=== PATIENT | female | born 1965 | race Caucasian/White ===

== ENCOUNTER → 2020-03-19 12:15 | Outpatient (CLI) | payer OTHER, SELFPAY ==
--- NOTE | ~2020-03-19 | DEXA_ITS ---
Bone Density Report Name: Nanette Ledesma Age: 54 Sex: Female Ethnicity: White Date of : 1965 Indication: postmenopausal; screening for osteoporosis; Referring Provider: MARIOLA GONZALEZ Study: Bone densitometry was performed. Exam Date: March 19, 2020 Accession number: [id number] Bone Density: Region BMD T-score Z-score Classification AP Spine (L1-L4) 0.937 -1.0 -0.1 Normal Femoral Neck (Left) 0.634 -1.9 -1.0 Osteopenia Total Hip (Left) 0.908 -0.3 0.3 Normal Femoral Neck (Right) 0.636 -1.9 -1.0 Osteopenia Total Hip (Right) 0.896 -0.4 0.2 Normal Total Hip Mean 0.902 -0.4 0.3 Normal World Health Organization criteria for BMD impression classify patients as: Normal (T-score at or above -1.0), Osteopenia (T-score between -1.0 and -2.5), or Osteoporosis (T-score at or below -2.5). 10-year Fracture Risk(1): Major Osteoporotic Fracture 6.4% Hip Fracture 0.7% Reported Risk Factors: [place] (), Neck BMD=0.636, BMI=28.2 (1) FRAX(R) Version 3.08. Fracture probability calculated for an untreated patient. Fracture probability may be lower if the patient has received treatment. Clinical Information Provided by Patient: Has used the following medications: Vitamin D Patient maximum height was 65 Menopause Age: 51 No regular weight bearing exercise Does not regularly consume dairy products Drinks caffeinated beverages Onset of menses at age 16 Number of children 0 Impression: The patient has low bone mass, based on the Left Femoral Neck T-score. The patient has an estimated ten-year risk of hip fracture of 0.7% and an estimated ten-year risk of major fracture of 6.4%, based on the WHO FRAX algorithm. Discussion: BONE DENSITY IS LOW AT ONE OR MORE SKELETAL SITES. This patient's lowest T-score is low at one or more skeletal sites. It meets the World Health Organization's (WHO) criteria for ?low bone mass? (T-score between -1.0 and -2.5). The patient's 10-year risk of fracture as calculated by FRAX is less than the threshold where pharmacological therapy is recommended by the National Osteoporosis Foundation (NOF). However, all treatment decisions require clinical judgment and consideration of individual patient factors, including patient preferences, comorbidities, previous drug use, risk factors not captured in the FRAX model (e.g., frailty, falls, vitamin D deficiency, increased bone turnover, interval significant decline in bone density) and possible under or overestimation of fracture risk by FRAX. The patient should follow a healthful lifestyle (good nutrition with adequate calcium and vitamin D, and appropriate weight-bearing exercise). Follow-Up: Consider repeating this study in 2 to 3 years to reassess this patient's status, or sooner if there is some new clinical indication. Chuy
== END ==
PROVIDERS: Visit Provider Obstetrics & Gynecology Gynecology
DX: Z78.0 Asymptomatic menopausal state (principal); M85.89 Other specified disorders of bone density and structure, multiple sites
CPT/HCPCS: 77080

== ENCOUNTER → 2020-04-05 13:36 | Outpatient (CLI) | payer OTHER, SELFPAY ==
--- NOTE | ~2020-04-05 | MM_ITS ---
EXAMINATION: MM screening kavitha BI w kandace HISTORY: Screening mammogram TECHNIQUE: Craniocaudal and mediolateral oblique 3-D tomosynthesis images were obtained and synthetic 2-D images were generated. CAD analysis was submitted and interpreted. COMPARISON: 04/03/2019, 03/06/2018, 02/26/2017 bilateral digital screening mammogram examinations BREAST PARENCHYMAL COMPOSITION: FINDINGS: There is no evidence of suspicious mass, calcification, or architectural distortion to sugg est malignancy in either breast. There has been no suspicious interval change. IMPRESSION: 1. No mammographic evidence of malignancy. 2. Recommend routine screening mammography in one year. BI-RADS Category 1: Negative Reviewed, dictated and finalized at location A.
== END ==
PROVIDERS: Visit Provider Obstetrics & Gynecology Gynecology
DX: Z12.31 Encounter for screening mammogram for malignant neoplasm of breast (principal)
CPT/HCPCS: 77063; 77067

== ENCOUNTER → 2020-11-04 10:43 | Outpatient (CLI) | payer OTHER, SELFPAY ==
--- NOTE | ~2020-11-04 | XR_ITS ---
EXAMINATION: CT abdomen pelvis wo/w con, XR abdomen/kub 1V DATE: 11/04/2020 11:44 INDICATION: Microscopic hematuria TECHNIQUE: 1. Computed tomography (CT) of the abdomen and pelvis was performed without intravenous contrast. CT of the abdomen and pelvis was then performed with a total of 130 mL Omnipaque-350 intravenous contras t using a double-bolus technique for simultaneous opacification of the renal parenchyma and renal col lecting system. Automated exposure control and iterative reconstruction technique were employed. The dose-length product was 1751.03 mGy-cm. 2. A single view of the abdomen was obtained on 2 radiographs. COMPARISON: None FINDINGS: CT: Small calcified nodules at the lingula consistent with old granulomatous disease. Heart size is krystian l. No pericardial or pleural effusion. Liver, gallbladder, spleen, pancreas and bilateral adrenal gla nds are normal. Bowels including the appendix are normal. Uterus and bilateral adnexa are unremarkabl e. No free intraperitoneal gas or fluid. No pathologically enlarged abdominal or pelvic lymphadenopat hy. Very mild lumbar levocurvature. Bones are otherwise unremarkable. Bilateral nephrolithiasis with single 5 mm nonobstructing stone at the lower pole calyx of the left k idney. Large at least partially obstructing staghorn calculus extending from the right renal pelvis i nto the infundibula of the bilateral lower pole calyces which measures up to 2.3 cm in maximal dimens ion and resulting in mild to moderate hydronephrosis in the right kidney. Contrast does however exten d beyond the stone the opacifying the proximal to mid right ureter and there is symmetric renal paren chymal enhancement with no delayed nephrogram. There are 6 additional stones measuring between 3-10 m m in the right kidney. No stones seen along the bilateral ureters. The left renal collecting system a nd ureter are opacified in their entirety. No urothelial irregularities along the contrast opacified bilateral renal collecting systems and ureters. Bladder is normal with left-sided ureteral jet. ABDOMEN RADIOGRAPH(S): The left renal stone and many of the larger right renal stones including the staghorn calculus at the renal pelvis are visible on the plain radiographs. Normal bowel gas pattern. IMPRESSION: 1. Bilateral nephrolithiasis including a partially obstructing 2.3 cm staghorn calculus at the right renal pelvis with mild to moderate right hydronephrosis but also contrast extending beyond the stone into the right ureter and without a delayed right nephrogram. Reviewed, dictated and finalized at location B. IMPRESSION: 1. Bilateral nephrolithiasis including a partially obstructing 2.3 cm staghorn calculus at the right renal pelvis with mild to moderate right hydronephrosis b ut also contrast extending beyond the stone into the right ureter and without a delayed right nephrogram.
[2020-11-04 11:13] LABS: Estimated Glomerular Filt Rate 58
== END ==
PROVIDERS: Visit Provider Urology
DX: R31.29 Other microscopic hematuria (principal); N20.0 Calculus of kidney
CPT/HCPCS: 74018; 74178; Q9967

== ENCOUNTER → 2021-02-07 10:12 | Outpatient (CLI) | payer OTHER, SELFPAY ==
--- NOTE | ~2021-02-07 | XR_ITS ---
XR abdomen/kub 1V 02/07/2021 10:58 Indication: Renal stones Procedure: KUB Comparison: 11/04/2010 Findings: There are bilateral renal stones with decreased stone burden in the right kidney. Bowel gas pattern is nonobstructive. Moderate colonic fecal loading. Mild levocurvature of the lumbar spine. N o acute osseous abnormality. Impression: 1: Bilateral nephrolithiasis Reviewed, dictated and finalized at location B. Impression: 1: Bilateral nephrolithiasis
--- NOTE | ~2021-02-07 | US_ITS ---
EXAMINATION: US retroperitoneal comp DATE: 02/07/2021 10:36 INDICATION: Calcium kidney stone. TECHNIQUE: Multiple ultrasound grayscale images of the kidneys were obtained. COMPARISON: CT abdomen and pelvis 11/01/2020 FINDINGS: The right kidney measures 11.5 x 6.0 x 7.0 cm. The left kidney measures 9.8 x 5.1 x 5.2 cm. The kidne ys demonstrate normal parenchymal echogenicity. There is a subcapsular hematoma of right kidney measu ring up to 17 mm in thickness. There are stones in the kidneys, right worse than left. There is mild right hydronephrosis. The bladder is normal. IMPRESSION: 1. Subcapsular hematoma of right kidney, new from 11/01/2020. 2. Bilateral kidney stones, right worse than left. 3. Mild right hydronephrosis. Reviewed, dictated and finalized at location A.
== END ==
PROVIDERS: Visit Provider Urology
DX: N20.0 Calculus of kidney (principal)
CPT/HCPCS: 74018; 76770

== ENCOUNTER → 2021-02-25 08:14 | Outpatient (CLI) | payer OTHER, SELFPAY ==
--- NOTE | ~2021-02-25 | CT_ITS ---
EXAMINATION: CT abdomen pelvis wo con DATE: 02/25/2021 08:47 INDICATION: Calcium kidney stone TECHNIQUE: Computed tomography (CT) of the abdomen and pelvis was performed without intravenous contr ast. Automated exposure control and iterative reconstruction technique were employed. Exam dose: 521 .72 mGy-cm total exam DLP. COMPARISON: 02/07/2021 KUB 11/04/2020 CT abdomen pelvis without and subsequently with IV contrast material FINDINGS: The lung bases are clear of infiltrate or consolidation. Normal heart size. No pericardial or pleural effusion. The liver, gallbladder, bile ducts, spleen, pancreas, pancreatic duct and adrenal glands appear krystian l. Approximately 2 cm lower pole probable right renal cyst. No other renal space-occupying mass lesion i s evident on this limited noncontrast examination. Bilateral nephrolithiasis: There are approximately 7 right renal nonobstructing calculi, measuring up to 5.8 x 9 mm maximal dime nsion. 2 x 4 mm upper pole left renal nonobstructing calculus. Up to 4.2 x 9 mm lower pole left renal nonobstructing calculus. No ureteral calculus or hydroureteronephrosis. Normal caliber of the abdominal aorta. No intraperitoneal or retroperitoneal or pelvic mass lesion or adenopathy or ascites. Normal appendix. No bowel obstruction, bowel wall thickening, pneumatosis or intraperitoneal free air . Small fat-containing umbilical hernia. Included skeletal structures are unremarkable. IMPRESSION: Bilateral nonobstructive nephrolithiasis 2 cm probable right renal cyst Reviewed, dictated and finalized at Location A. Reviewed, dictated and finalized at location A.
== END ==
PROVIDERS: Visit Provider Urology
DX: N20.0 Calculus of kidney (principal)
CPT/HCPCS: 74176

== ENCOUNTER → 2021-04-27 13:36 | Outpatient (CLI) | payer OTHER, SELFPAY ==
--- NOTE | ~2021-04-27 | MM_ITS ---
EXAMINATION: MM screening kavitha BI w kandace HISTORY: Screening mammogram TECHNIQUE: Craniocaudal and mediolateral oblique 3-D tomosynthesis images were obtained and synthetic 2-D images were generated. CAD analysis was submitted and interpreted. COMPARISON: 04/05/2020, 04/03/2019, 03/06/2018 bilateral digital screening mammogram examinations BREAST PARENCHYMAL COMPOSITION: There are scattered areas of fibroglandular density. FINDINGS: There is no evidence of suspicious mass, calcification, or architectural distortion to sugg est malignancy in either breast. There has been no suspicious interval change. IMPRESSION: 1. No mammographic evidence of malignancy. 2. Recommend routine screening mammography in one year. BI-RADS Category 1: Negative Reviewed, dictated and finalized at location A.
== END ==
PROVIDERS: Visit Provider Obstetrics & Gynecology Gynecology
DX: Z12.31 Encounter for screening mammogram for malignant neoplasm of breast (principal)
CPT/HCPCS: 77063; 77067

== ENCOUNTER → 2021-12-21 14:52 | Outpatient (CLI) | payer OTHER, SELFPAY ==
--- NOTE | ~2021-12-21 | XR_ITS ---
EXAM: XR abdomen/kub 1V HISTORY: Calcium kidney stone COMPARISON: 02/07/21 FINDINGS: Clear lung bases. Normal bowel gas pattern. No organomegaly. Bilateral renal stones, decre ased stone burden on the right. Regional bones and soft tissues normal for age. IMPRESSION: Bilateral nephrolithiasis. Reviewed, dictated and finalized at location K. IMPRESSION: Bilateral nephrolithiasis.
== END ==
PROVIDERS: PCP Internal Medicine; Visit Provider Urology
DX: N20.0 Calculus of kidney (principal)
CPT/HCPCS: 74018

== ENCOUNTER → 2022-05-01 10:29 | Outpatient (CLI) | payer OTHER, SELFPAY ==
--- NOTE | ~2022-05-01 | MM_ITS ---
EXAMINATION: MM screening kavitha BI w kandace HISTORY: Screening mammogram TECHNIQUE: Craniocaudal and mediolateral oblique 3-D tomosynthesis images were obtained and synthetic 2-D images were generated. CAD analysis was submitted and interpreted. COMPARISON: 04/27/2021, 04/05/2020, 04/03/2019 bilateral screening mammogram examinations BREAST PARENCHYMAL COMPOSITION: There are scattered areas of fibroglandular density. FINDINGS: There is no evidence of suspicious mass, calcification, or architectural distortion to sugg est malignancy in either breast. There has been no suspicious interval change. IMPRESSION: 1. No mammographic evidence of malignancy. 2. Recommend routine screening mammography in one year. BI-RADS Category 1: Negative Reviewed, dictated and finalized at location A.
== END ==
PROVIDERS: PCP Internal Medicine; Visit Provider Obstetrics & Gynecology Gynecology
DX: Z12.31 Encounter for screening mammogram for malignant neoplasm of breast (principal)
CPT/HCPCS: 77063; 77067

== ENCOUNTER → 2022-12-21 08:47 | Outpatient (CLI) | payer OTHER, SELFPAY ==
--- NOTE | ~2022-12-21 | XR_ITS ---
EXAMINATION: XR abdomen/kub 1V DATE: 12/21/2022 09:03 INDICATION: Calculus of kidney. TECHNIQUE: A supine view of the abdomen on 2 radiographs was obtained. COMPARISON: CT abdomen and pelvis 02/25/2021 FINDINGS: There are no dilated loops of bowel. There are at least 5 stones in right kidney measuring up to 8 mm. There are 2 stones in left kidney measuring up to 9 mm. IMPRESSION: 1. Bilateral kidney stones. Reviewed, dictated and finalized at location A. IMPRESSION: 1. Bilateral kidney stones.
== END ==
PROVIDERS: PCP Internal Medicine; Visit Provider Urology
DX: N20.0 Calculus of kidney (principal)
CPT/HCPCS: 74018

== ENCOUNTER → 2023-05-07 11:02 | Outpatient (CLI) | payer OTHER, SELFPAY ==
--- NOTE | ~2023-05-07 | DEXA_ITS ---
Bone Density Report Name: CHRISTOFER ANDERSON Age: 57 Sex: Female Ethnicity: White Date of : 1965 Indication: postmenopausal; screening for osteoporosis; Referring Provider: BRIANA RAMOS Study: Bone densitometry was performed. Exam Date: May 07, 2023 Accession number: [id number] Bone Density: Region BMD T-score Z-score Classification AP Spine (L1-L4) 0.898 -1.4 -0.2 Osteopenia Femoral Neck (Left) 0.630 -2.0 -0.9 Osteopenia Total Hip (Left) 0.865 -0.6 0.1 Normal Femoral Neck (Right) 0.624 -2.0 -0.9 Osteopenia Total Hip (Right) 0.882 -0.5 0.2 Normal Total Hip Mean 0.874 -0.6 0.2 Normal World Health Organization criteria for BMD impression classify patients as: Normal (T-score at or above -1.0), Osteopenia (T-score between -1.0 and -2.5), or Osteoporosis (T-score at or below -2.5). 10-year Fracture Risk(1): Major Osteoporotic Fracture 7.7% Hip Fracture 0.8% Reported Risk Factors: [place] (), Neck BMD=0.624, BMI=29.1 (1) FRAX(R) Version 3.08. Fracture probability calculated for an untreated patient. Fracture probability may be lower if the patient has received treatment. Previous Exams: Region Exam Age BMD T-score BMD Change BMD Change Date g/cm2 vs Baseline vs Previous AP Spine(L1-L4) 05/07/2023 57 0.898 -1.4 -0.039* -0.039* 03/19/2020 54 0.937 -1.0 Total Hip(Left) 05/07/2023 57 0.865 -0.6 -0.043* -0.043* 03/19/2020 54 0.908 -0.3 Total Hip(Right) 05/07/2023 57 0.882 -0.5 -0.014 -0.014 03/19/2020 54 0.896 -0.4 *Denotes significance at 95% confidence level, LSC for AP Spine = 0.022 g/cm2, LSC for Total Hip = 0.027 g/cm2 Clinical Information Provided by Patient: Has used the following medications: Vitamin D Patient maximum height was 65 Menopause Age: 51 Does not regularly consume dairy products Drinks caffeinated beverages Onset of menses at age 16 Number of children 0 Impression: The patient has low bone mass, based on the Left Femoral Neck T-score. The patient has an estimated ten-year risk of hip fracture of 0.8% and an estimated ten-year risk of major fracture of 7.7%, based on the WHO FRAX algorithm. The BMD for the AP Spine(L1-L4) decreased, changing by -0.039 since the last DXA exam. The BMD for the Total Hip(Left) decreased, changing by -0.043 since the last DXA exam. Discussion: BONE DENSITY IS LOW AT ONE OR MORE SKELETAL SITES. This p
--- NOTE | ~2023-05-07 | MM_ITS ---
EXAMINATION: MM screening kavitha BI w kandace HISTORY: Screening TECHNIQUE: Craniocaudal and mediolateral oblique 3-D tomosynthesis images were obtained and synthetic 2-D images were generated. CAD analysis was submitted and interpreted. COMPARISON: Comparison to multiple prior studies sequentially, with oldest reviewed study dated 02/26. BREAST PARENCHYMAL COMPOSITION: Breast composed of scattered areas of fibroglandular density FINDINGS: There is no evidence of suspicious mass, calcification, or architectural distortion to sugg est malignancy in either breast. There has been no suspicious interval change. IMPRESSION: 1. No mammographic evidence of malignancy. 2. Recommend routine screening mammography in one year. BI-RADS Category 1: Negative Reviewed, dictated and finalized at location A.
== END ==
PROVIDERS: PCP Advanced Practice Midwife; Visit Provider Advanced Practice Midwife
DX: Z12.31 Encounter for screening mammogram for malignant neoplasm of breast (principal); Z78.0 Asymptomatic menopausal state; M85.88 Other specified disorders of bone density and structure, other site; M85.852 Other specified disorders of bone density and structure, left thigh; M85.851 Other specified disorders of bone density and structure, right thigh
CPT/HCPCS: 77063; 77067; 77080

== ENCOUNTER 2024-02-15 12:20 | Outpatient (CLI) | payer OTHER, SELFPAY ==
--- NOTE | ~2024-02-15 | XR_ITS ---
XR abdomen/kub 1V Ordering provider: Buddy Barba MD History: . CALCIUM KIDNEY STONE . Comparison: December 21, 2022 FINDINGS: BOWEL: Nonobstructive bowel gas pattern. ORGANOMEGALY: None. SIGNIFICANT PATHOLOGIC CALCIFICATIONS: Bilateral kidney stones. OTHER: No free air is seen under the diaphragm. IMPRESSION: Bilateral kidney stones. Otherwise, NO ACUTE ABDOMINAL FINDINGS. Reviewed, dictated and finalized at location A.
== END 2024-02-15 12:21 ==
PROVIDERS: PCP Urology; Visit Provider Urology
DX: N20.0 Calculus of kidney (principal)
CPT/HCPCS: 74018

== ENCOUNTER 2024-05-09 11:16 | Outpatient (CLI) | payer OTHER, SELFPAY ==
--- NOTE | ~2024-05-09 | MM_ITS ---
EXAMINATION: MM screening kavitha BI w kandace HISTORY: Screening mammogram TECHNIQUE: Craniocaudal and mediolateral oblique 3-D tomosynthesis images were obtained and synthetic 2-D images were generated. CAD analysis was submitted and interpreted. COMPARISON: 05/07/2023, 05/01/2022, 04/27/2021, 04/05/2020 BREAST PARENCHYMAL COMPOSITION:Not Dense. The breasts are almost entirely fatty FINDINGS: No suspicious mass, calcification, or architectural distortion are identified in either ricco ast to suggest malignancy. There has been no suspicious interval change. IMPRESSION: No mammographic evidence of malignancy. Recommend routine screening mammography in one year. BI-RADS Category 1: Negative Reviewed, dictated and finalized at location .
== END 2024-05-09 11:17 | disposition home or self-care (01) ==
LOC: MICIMG 11:17
PROVIDERS: PCP Obstetrics & Gynecology Gynecology; Visit Provider Obstetrics & Gynecology Gynecology
DX: Z12.31 Encounter for screening mammogram for malignant neoplasm of breast (principal)
CPT/HCPCS: 77063; 77067

== ENCOUNTER 2025-02-19 13:56 | Outpatient (CLI) | payer OTHER, SELFPAY ==
--- NOTE | ~2025-02-19 | XR_ITS ---
EXAM/PROCEDURE: XR abdomen/kub 1V - 02/19/2025 14:02 CDT HISTORY: 59 years old Female with Calcium kidney stone COMPARISON: None available. TECHNIQUE: AP view(s) of the abdomen. FINDINGS: The bowel gas pattern is normal. There is no evidence for obstruction. No free intraperitoneal air is identified on this supine radiograph. The visualized soft tissue shadows are unremarkable. No gross bony abnormalities are seen. Visualized portions of lung bases are clear. IMPRESSION: No acute process. Reviewed, dictated and finalized at location A. IMPRESSION: No acute process.
== END 2025-02-19 13:57 | disposition home or self-care (01) ==
LOC: MICIMG 13:58
PROVIDERS: PCP Nurse Practitioner Family; Visit Provider Urology
DX: N20.0 Calculus of kidney (principal)
CPT/HCPCS: 74018

== ENCOUNTER 2025-05-25 13:35 | Outpatient (CLI) | payer OTHER, SELFPAY ==
--- NOTE | ~2025-05-25 | DEXA_ITS ---
Bone Density Report Name: CHRISTOFER ANDERSON Age: 59 Sex: Female Ethnicity: White Date of : 1965 Indication: osteopenia; inflammatory bowel disease; Referring Provider: MARIOLA GONZALEZ Study: Bone densitometry was performed. Exam Date: May 25, 2025 Accession number: [id number] Bone Density: Region BMD T-score Z-score Classification AP Spine(L1-L4) 0.907 -1.3 0.0 Osteopenia Femoral Neck (Left) 0.674 -1.6 -0.4 Osteopenia Total Hip (Left) 0.827 -0.9 -0.1 Normal Femoral Neck (Right) 0.603 -2.2 -1.0 Osteopenia Total Hip (Right) 0.859 -0.7 0.2 Normal Total Hip Mean 0.843 -0.8 0.1 Normal World Health Organization criteria for BMD impression classify patients as: Normal (T-score at or above -1.0), Osteopenia (T-score between -1.0 and -2.5), or Osteoporosis (T-score at or below -2.5). 10-year Fracture Risk(1): Major Osteoporotic Fracture 9.1% Hip Fracture 1.2% Reported Risk Factors: [place] (), Neck BMD=0.603, BMI=28.8 (1) FRAX(R) Version 3.08. Fracture probability calculated for an untreated patient. Fracture probability may be lower if the patient has received treatment. Previous Exams: -- Region Exam Age BMD T-score BMD Change BMD Change Date g/cm2 vs Baseline vs Previous -- AP Spine (L1-L4) 05/25/2025 59 0.907 -1.3 -3.2%* 1.0% 05/07/2023 57 0.898 -1.4 -4.2%* -4.2%* 03/19/2020 54 0.937 -1.0 Total Hip(Left) 05/25/2025 59 0.827 -0.9 -8.9%* -4.3%* 05/07/2023 57 0.865 -0.6 -4.7%* -4.7%* 03/19/2020 54 0.908 -0.3 Total Hip(Right) 05/25/2025 59 0.859 -0.7 -4.1%* -2.6% 05/07/2023 57 0.882 -0.5 -1.6% -1.6% 03/19/2020 54 0.896 -0.4 -- *Denotes significance at 95% confidence level, LSC for AP Spine = 0.022 g/cm2, LSC for Total Hip = 0.027 g/cm2 Clinical Information Provided by Patient: Has used the following medications: Vitamin D Has the following medical conditions: Inflammatory bowel diseases Patient maximum height was 65 Menopause Age: 51 No regular weight bearing exercise Does not regularly consume dairy products Onset of menses at age 16 Number of children 0 Impression: The patient has low bone mass, based on the Right Femoral Neck T-score. The patient has an estimated ten-year risk of hip fracture of 1.2% and an estimated ten-year risk of major fracture of 9.1%, based on the WHO FRAX algorithm. The BMD for the Total Hip(Left) decreased, changing by -4.3% since the last DXA exam. Discussion: BONE DENSITY IS LOW AT ONE OR MORE SKELETAL SITES. This patient's lowest T-score is low at one or more skeletal sites. It meets the World Health Organization's (WHO) criteria for ?low bone mass? (T-score between -1.0 and -2.5). The patient's 10-year risk of fracture as calculated by FRAX is less than the threshold where pharmacological therapy is recommended by the National Osteoporosis Foundation (NOF). However, all treatment decisions require clinical judgment and consideration of individual patient factors, including patient preferences, comorbidities, previous drug use, risk factors not captured in the FRAX model (e.g., frailty, falls, vitamin D deficiency, increased bone turnover, interval significant decline in bone density) and possible under or overestimation of fracture risk by FRAX. The patient should follow a healthful lifestyle (good nutrition with adequate calcium and vitamin D, and appropriate weight-bearing exercise). Follow-Up: Consider repeating this study in 2 years to reassess this patient's status, or sooner if there is some new clinical indication. Reported by: AMOS on 05/25/2025 1:57:00 PM. Reviewed, dictated and finalized at location A.
--- NOTE | ~2025-05-25 | MM_ITS ---
EXAMINATION: MM screening kavitha BI w kandace HISTORY: Screening TECHNIQUE: Craniocaudal and mediolateral oblique 3-D tomosynthesis images were obtained and synthetic 2-D images were generated. CAD analysis was submitted and interpreted. COMPARISON: Comparison to multiple prior studies sequentially, with oldest reviewed study dated , 04/05/2020 BREAST PARENCHYMAL COMPOSITION: There are scattered areas of fibroglandular density. FINDINGS: There is no evidence of suspicious mass, calcification, or architectural distortion to suggest malignancy in either breast. IMPRESSION: 1. No mammographic evidence of malignancy. 2. Recommend routine screening mammography in one year. BI-RADS Category 1: Negative Reviewed, dictated and finalized at location B.
== END 2025-05-25 13:36 | disposition home or self-care (01) ==
LOC: MICIMG 13:37
PROVIDERS: PCP Nurse Practitioner Family; Visit Provider Obstetrics & Gynecology Gynecology
DX: Z12.31 Encounter for screening mammogram for malignant neoplasm of breast (principal); Z78.0 Asymptomatic menopausal state; M85.88 Other specified disorders of bone density and structure, other site; M85.852 Other specified disorders of bone density and structure, left thigh; M85.851 Other specified disorders of bone density and structure, right thigh
CPT/HCPCS: 77063; 77067; 77080